=== PATIENT | male | born 1980 | race Caucasian/White ===

== ENCOUNTER 2023-01-06 01:33 | Emergency (ER) | payer OTHER, SELFPAY ==
--- NOTE | ~2023-01-06 | CT_ITS ---
CT of the Abdomen and Pelvis: Indication: Abdominal pain Technique: 2.5 mm axial scans were obtained through the abdomen and pelvis following intravenous adm inistration of 100 cc of Omnipaque 350. Dose reduction technique was used on this scan by utilizing a utomated exposure control and iterative reconstruction technique. The dose-length product (DLP) was 3 85.71 mGy-cm. Findings: Scans through the lung bases are unremarkable. The liver, spleen, pancreas, gallbladder, adrenals and kidneys are within normal limits. No evidence of aortic aneurysm. No lymphadenopathy. No bowel obstruction or bowel wall thickening. Multiple fluid-filled bowel loops are present, particu larly large bowel. No abscess or free air. Images through the pelvis were performed. Urinary bladder unremarkable. Prostate gland and seminal ve sicles are unremarkable. No ascites. Impression: Fluid-filled bowel loops. Correlate for diarrheal illness. Reviewed, dictated and finalized at [facility]. Impression: Fluid-filled bowel loops. Correlate for diarrheal illness.
[2023-01-06 01:39] VITALS: BP 129/90; PULSE 73; RESP 16; TEMP 36.4; O2SAT 100
--- NOTE | 2023-01-06 01:46 | ECG_ITS ---
Measurements Intervals [place] Rate: 75 P: 30 MN: 174 QRS: 27 QRSD: 90 T: 5 QT: 367 QTc: 412 Interpretive Statements SINUS RHYTHM BASELINE ARTIFACT NORMAL ECG NO PREVIOUS ECG AVAILABLE FOR COMPARISON Electronically Signed On 01-06-2023 16:14:05 CDT by Harjeet Chino M.D.
[2023-01-06 01:48] VITALS: BP 124/95; PULSE 72; RESP 14; TEMP 36.4; O2SAT 100
--- NOTE | 2023-01-06 01:54 | ED.ABDPAIN ---
HPI - Abdominal Pain General Chief Complaint: Abdominal Pain Stated Complaint: abd pain/pressure Time Seen by Provider: 01/06/23 01:46 History of Present Illness HPI narrative: 42-year-old male recently been treated with Bactrim for suspected UTI presenting with 1 day of nausea/vomiting, epigastric discomfort and bloating. Also feels constipated and has not had a BM for 3 days. No history of abdominal surgeries Related Data Allergies Allergy/AdvReac Type Severity Reaction Status Date / Time No Known Allergies Allergy Verified 05/16/20 11:08 Review of Systems Review of Systems: CONST: No fever. HEENT: No sore throat C/V: No chest pain RESP: No cough GI: Reports abdominal pain, nausea : No dysuria. M/S: No joint pain. SKIN: No rash. NEURO: [No headache or focal numbness or weakness] PSYCH: [No depression] [facility] Social History Social History Smoking status: Never smoker Second hand tobacco smoke exposure: No Substance use type: marijuana Exam Narrative: EXAMINATION OF ORGAN SYSTEMS/BODY AREAS: Constitutional: Vital signs per nursing GENERAL:[No acute distress, non-toxic appearing.] HEAD: Normal with no signs of head trauma. EYES: EOMI, conjunctiva normal ENT: Hearing grossly intact LUNGS: Nonlabored breathing. HEART: [Regular rate and rhythm] ABD: [Soft], [nontender to palpation] EXT: Normal range of motion SKIN: [No rashes or lesions.] NEURO: [Alert and oriented x 3. No gross focal sensory or strength deficits.] PSYCH: Normal affect Course Vital Signs Vital signs: Vital Signs Temperature 97.6 F 01/06/23 01:39 Pulse Rate 73 01/06/23 01:39 Respiratory Rate 16 01/06/23 01:39 Blood Pressure 129/90 01/06/23 01:39 Pulse Oximetry 100 01/06/23 01:39 Oxygen Delivery Room Air 01/06/23 01:39 Temperature 97.6 F 01/06/23 01:48 Pulse Rate 95 01/06/23 03:10 Respiratory Rate 21 H 01/06/23 03:10 Blood Pressure 124/95 H 01/06/23 01:48 Pulse Oximetry 98 01/06/23 03:10 Oxygen Delivery Room Air 01/06/23 01:39 MDM - Abdominal Pain MDM Narrative Medical decision making narrative: Electronic medical record was reviewed; history obtained from patient and family at bedside. Patient presented to the ED with complaint of [abdominal pain and vomiting]. Vitals [were within acceptable limits]. Physical exam revealed soft, nontender abdomen. Based on the patient's history and physical exam, my differential includes but is not limited to [gastritis, gastroenteritis, cholecystitis, pancreatitis]. Since he had recently been seen for possible UTI I we will also obtain a UA. [IV access was established by nursing staff. Patient was given zofran, famotidine]. CBC, BMP, lipase, LFTs, bilirubin and alk phos were obtained. Labs were pertinent for elevated LFTs though he has had this historically per EMS review; UA negative. [Decision was made to obtain a CT-abdomen to evaluate for acute abdominal process. CT-abdomen showing mesenteric adenitis without other obvious acute emergent abnormality.] On reevaluation, the patient states that they are feeling much better. There were no witnessed episodes of vomiting in the emergency department. They are not complaining of any new abdominal pain. Repeat examination did not show any significant guarding or rebound. No new tenderness. At this time I do not feel there is any further emergent treatment to be provided. The patient was given strict return precautions, if they are to develop any worsening abdominal pain, vomiting, or blood in the vomit they are to return to the emergency department immediately. Patient verbally acknowledges understanding these directions. [The patient was informed of the above diagnostic test findings.] No further workup is necessary at this time. They will be discharged home [with prescriptions]. They were advised to follow-up with [their PCP and GI] in 2 days. The patient feels that
[2023-01-06] MEDS: ONDANSETRON HCL ODT 4 MG TABLET PO (02:08)
[2023-01-06] MEDS: FAMOTIDINE 20 MG TABLET PO (02:08)
[2023-01-06] MEDS: MAG HYDROX/AL HYDROX/SIMETH 30 ML UDC PO (02:08)
[2023-01-06 02:11] LABS: Basophils Percent Auto 0.6 % (0.2-1.2); Eosinophils Absolute Auto 0.1 K/mm3 (0-0.3); Eosinophils Percent Auto 1.6 % (0-4.4); Hematocrit 40.7 % (42.0-52.0); Hemoglobin 13.9 g/dL (14.0-18.0); Immature Granulocyte Absolute 0.01 K/mm3 (0.00-0.031); Immature Granulocyte Percent A 0.2 % (0-0.5); Lymphocytes Absolute Auto 1.23 K/mm3 (0.9-3.2); Lymphocytes Percent Auto 19.4 % (18.3-44.2); Mean Corpuscular HGB Conc 34.2 g/dl (32-36); Mean Corpuscular Hemoglobin 28.8 pg (26-34); Mean Corpuscular Volume 84.4 fl (80-100); Mean Platelet Volume 10.4 fl (7.4-10.4); Monocytes Absolute Auto 0.5 K/mm3 (0.1-0.6); Monocytes Percent Auto 7.4 % (2.6-8.5); Neutrophils Absolute Auto 4.5 K/mm3 (1.3-6.7); Neutrophils Percent Auto 70.8 % (45.5-73.1); Platelet Count Result 257 k/mm3 (150-375); Red Blood Count 4.82 M/mm3 (4.6-6.20); Red Cell Distribution Width 11.9 % (11.5-14.5); White Blood Count 6.3 K/mm3 (4.5-10.0)
[2023-01-06 02:22] LABS: Alanine Aminotransferase 130 U/L (6-50); Albumin Level 5.3 g/dL (3.5-5.1); Alkaline Phosphatase 59 U/L (38-126); Anion Gap 12 mmol/L (8-16); Aspartate Amino Transferase 69 U/L (17-59); Bilirubin,Total 0.7 mg/dL (0.2-1.3); Blood Urea Nitrogen 16 mg/dL (9-20); Calcium 8.9 mg/dL (8.4-10.2); Carbon Dioxide 27 mmol/L (22-30); Chloride 98 mmol/L (98-107); Estimated CRCL calculation 110 ml/min; Estimated Glomerular Filt Rate > 60; Glucose 118 mg/dL (65-110); Lipase 68 U/L (23-300); Potassium 3.9 mmol/L (3.4-5.0); Sodium 137 mmol/L (137-145)
[2023-01-06 02:33] LABS: Troponin I < 0.012 ng/mL (0.000-0.034)
[2023-01-06 03:10] VITALS: PULSE 95; RESP 21; O2SAT 98
[2023-01-06] MEDS: LACTATED RINGERS 1,000 ML 999 ML IV CONT (03:17)
[2023-01-06 03:35] LABS: Appearance Urine Clear (Clear); Bilirubin Urine Negative (Negative); Blood Urine Negative (Negative); Color Urine Yellow (Yellow); Glucose Urine UA Negative (Negative); Ketones Urine Trace mg/dL (Negative); Leukocyte Esterase Ur Negative LEU/UL (Negative); Nitrate Urine Negative (Negative); Protein Urine Negative (Negative)
[2023-01-06 03:47] LABS: Specific Grav Ur 1.065 (1.001-1.035)
[2023-01-06 03:48] LABS: Add Urine Microscopic? NO
[2023-01-06 04:49] VITALS: BP 104/82; PULSE 72; RESP 18; TEMP 37.1; O2SAT 99
== END 2023-01-06 04:51 | disposition home or self-care (01) ==
PROVIDERS: Emergency Provider Emergency Medicine; PCP Family Medicine
DX: R10.13 Epigastric pain (principal); R14.0 Abdominal distension (gaseous); R74.01 Elevation of levels of liver transaminase levels
CPT/HCPCS: 36415; 74177; 80053; 81003; 83690; 84484; 85025; 93005; 96360; 99284; A9270; J7120; Q9967

== ENCOUNTER 2023-02-16 07:39 | Outpatient (CLI) | payer OTHER, SELFPAY ==
--- NOTE | ~2023-02-16 | US_ITS ---
US right upper quadrant INDICATION: Elevated liver function tests PROCEDURE: Realtime right upper abdominal ultrasound. COMPARISON: No prior studies for comparison. FINDINGS: The pancreas is normal without focal mass or pancreatic ductal dilation. Liver echotexture is normal without focal mass. There is normal directional flow in the portal vein. The gallbladder is normal without stones, gallbladder wall thickening or pericholecystic fluid. Comm on bile duct measures 3 mm. No sonographic Barnett's sign. IMPRESSION: 1: Normal limited abdominal ultrasound. Reviewed, dictated and finalized at location B.
== END 2023-02-16 07:40 | disposition home or self-care (01) ==
PROVIDERS: PCP Family Medicine; Visit Provider Family Medicine
DX: R79.89 Other specified abnormal findings of blood chemistry (principal)
CPT/HCPCS: 76705